=== PATIENT | female | born 1950 | race Caucasian/White ===

== ENCOUNTER 2020-04-06 14:26 | Emergency (ER) | payer OTHER, MEDICARE ==
[~2020-04-06] VITALS: Ht 160 cm; Wt 59.0 kg
[~2020-04-06 14:26] MED LIST: ASPIRIN81 M1 PO; ATENOLOL50 MG PO; ESTROGEN PO; LEXAPRO10 MG PO; LIPITOR20 MG PO; PRILOSEC40 MG PO; URIBEL PO; ZANTAC 300300 MG PO
[2020-04-06] MEDS ORDERED: ROBAXIN-750750 MG PO (16:48)
== END 2020-04-06 16:51 | disposition home or self-care (01) ==
LOC: ED 14:26
DX: S13.4XXA Sprain of ligaments of cervical spine, initial encounter (principal); K21.9 Gastro-esophageal reflux disease without esophagitis; E78.00 Pure hypercholesterolemia, unspecified; J45.909 Unspecified asthma, uncomplicated; Z88.8 Allergy status to other drugs, medicaments and biological substances; Z79.899 Other long term (current) drug therapy; Z79.82 Long term (current) use of aspirin; V89.2XXA Person injured in unspecified motor-vehicle accident, traffic, initial encounter; Y93.89 Activity, other specified; Y92.89 Other specified places as the place of occurrence of the external cause; Y99.8 Other external cause status